=== PATIENT | male | born 1930 | race Caucasian/White ===

== ENCOUNTER → 2016-11-21 | Day surgery (SDC) | payer MEDICARE, BC ==
[~2016-11-21] MED LIST: ASPIRIN81 M2; FEOSOL PO; LISINOPRIL20 MG PO; LOPRESSOR PO; METOPROLOL SUCC25 MG; MULTI-VITAMIN1 EAC1 PO; OMEPRAZOLE20 M1 PO; PANTOPRAZOLE SO40 MG PO; REGLAN10 MG PO; SIMVASTATIN20 MG; XARELTO20 MG
--- NOTE | ~2016-11-21 | OR ---
Unit #: [id number] #: [id number] Patient: HARMEET TINOCO [id number] [address] [place], [place] [address] [id number] MR#: [id number] NAME: HARMEET TINOCO. ROOM: Date of Procedure: 11/21/2016 Admission Date: 11/21/2016 Surgeon: Dani Frank M.D. : 1930 Attending Physician: Dani Frank M.D. OPERATIVE REPORT PRIMARY CARE PHYSICIAN Shwetha Plaza M.D. PREOPERATIVE DIAGNOSES The patient has presented with a history of excessive burping, bloating, and early satiety. PROCEDURE PERFORMED Upper gastrointestinal endoscopy. POSTOPERATIVE DIAGNOSES 1. 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 2. Large amount of food residue was seen lodged in the gastric remnant indicating postoperative gastroparesis. RECOMMENDATIONS The treatment of this condition is quite difficult as the vagal innervation is permanently gone. A small frequent meals with low residue is the bridges to treatment. Also, the patient should avoid eating late at night and also avoid large heavy fatty meals. Lastly, substituting some of the meals for Ensure or Boost will also help; although, the patient is being started on a combination of pantoprazole and Reglan. Reglan is generally not very effective and if it is not very helpful, this can be discontinued in 6 to 8 weeks' time. The patient will be followed up in the office in 3 months' time. SEDATION USED MAC. DESCRIPTION OF PROCEDURE Following detailed explanation of potential risks and complications of an upper endoscopy, namely perforation, bleeding, and complications related to sedation, the patient was brought to GI lab and laid in the left lateral decubitus position. Lubricated tip of the Olympus video upper endoscope was passed through the bite block into the proximal esophagus under direct vision. The entire esophageal mucosa was examined and appeared normal. Z-line was nicely demarcated, there being no esophagitis or hiatus hernia. The scope was then advanced into the gastric cavity. The patient was noted to have postsurgical changes of gastroenteroanastomosis Billroth I type. The gastric remnant, which included the fundus and body was present. The patient having had partial Unit #: [id number] #: [id number] Patient: HARMEET TINOCO distal gastric resection in the past. With anastomosis appeared healthy apart from the usual redness around the anastomosis; however, large amount of solid food residue was seen lodged in the stomach. This indicates postoperative gastroparesis. The scope was then withdrawn in the distal esophagus. The entire esophageal mucosa was examined all the way up to pharynx. No additional findings were noted. The patient tolerated the procedure without any postprocedure complications. Dictated by... Ric Castillo/florencia TD: 11/22/2016 03:20 JOB #: [id number] CC: Shwetha Plaza M.D. OPERATIVE REPORT Page 1 of 1 X Dani Frank MD X PROCEDURE OPERATIVE NOTE
== END | disposition home or self-care (01) ==
LOC: COPS 12:18
DX: K31.84 Gastroparesis (principal); K63.89 Other specified diseases of intestine; I10 Essential (primary) hypertension; I48.91 Unspecified atrial fibrillation; Z85.828 Personal history of other malignant neoplasm of skin; Z88.5 Allergy status to narcotic agent; Z91.011 Allergy to milk products; Z79.899 Other long term (current) drug therapy; Z98.890 Other specified postprocedural states